=== PATIENT | female | born 1980 | race Caucasian/White ===

== ENCOUNTER 2018-03-09 13:07 | Emergency (ER) | payer SELFPAY ==
[~2018-03-09] VITALS: Ht 177.8 cm; Wt 69.0 kg
[2018-03-09 15:14] VITALS: BP 116/83
== END 2018-03-09 15:14 | disposition home or self-care (01) ==
LOC: EME 13:07
DX: T63.441A Toxic effect of venom of bees, accidental (unintentional), initial encounter (principal)
CPT/HCPCS: 99281; 99283